=== PATIENT | female | born 1940 | race Hispanic/Latino ===

== ENCOUNTER 2022-10-15 12:38 | Inpatient (IN) | payer MEDICARE ==
[2022-10-15] VITALS (32 sets, daily range): BP systolic 95–179; BP diastolic 40–95
[~2022-10-15] VITALS: Ht 154.9 cm; Wt 122.9 kg
[2022-10-15] MEDS ORDERED: HEPARIN 10,000 UNIT/10ML (1,000 UNIT/ML) VIAL ONE (14:36)
[2022-10-15] MEDS ORDERED: VERAPAMIL HCL 2.5 MG/ML VIAL ONE (14:36)
[2022-10-15] MEDS ORDERED: FENTANYL CITRATE PF 50 MCG/1 ML 2ML VIAL ONE (14:37)
[2022-10-15] MEDS ORDERED: LIDOCAINE HCL 400MG/20ML VIAL ONE (14:37)
[2022-10-15] MEDS ORDERED: IOHEXOL-350 50ML VIAL IV ONE ×3 (14:37→16:20)
[2022-10-15] MEDS ORDERED: MIDAZOLAM HCL 1 MG/ML 2ML VIAL ONE (14:37)
[2022-10-15] MEDS ORDERED: IODIXANOL 320 MG/ML 100 ML VIAL ONE (14:37)
[2022-10-15] MEDS ORDERED: NITROGLYCERIN 50MG VIAL ONE (14:38)
[2022-10-15 14:50] LABS: BASOPHILS % (AUTO) 0.9 % (0.0-5.0); LYMPHOCYTES % (AUTO) 18.9 % (21.0-51.0); MEAN CORPUSCULAR HEMOGLOBIN 29.8 pg (27.0-33.0); MEAN CORPUSCULAR HGB CONC 32.8 g/dL (32.0-36.0); MEAN CORPUSCULAR VOLUME 90.7 fL (79-99); MONOCYTES % (AUTO) 7.2 % (3.0-13.0); NEUTROPHILS % (AUTO) 71.6 % (40.0-77.0); PLATELET COUNT (AUTO) 272 K/uL (130-400); RED CELL DISTRIBUTION WIDTH 13.2 % (11.0-15.5); WHITE BLOOD COUNT (AUTO) 11.5 K/uL (4.8-10.8)
[2022-10-15] MEDS ORDERED: PHENYLEPHRINE HCL 10 MG/ML 1ML VIAL IV ONE (14:50)
[2022-10-15] MEDS ORDERED: LIDOCAINE PF 100MG/5ML (2%) SYRINGE 5ML IVP ONE (14:50)
[2022-10-15] MEDS ORDERED: SODIUM BICARB 8.4% 50ML SYRINGE IVP ONE (14:50)
[2022-10-15] MEDS ORDERED: NOREPINEPHRINE BITARTRATE 1 MG/1 ML ML IV ONE (14:50)
[2022-10-15] MEDS ORDERED: ALBUMIN (HUMAN) 25% 50 ML IV ONE (14:50)
[2022-10-15] MEDS ORDERED: CACL 1GM SYG IVP ONE (14:50)
[2022-10-15] MEDS ORDERED: AMINOCAPROIC ACID 5,000MG VIAL IV ONE (14:50)
[2022-10-15] MEDS ORDERED: HEPARIN 10,000 UNIT/10ML (1,000 UNIT/ML) VIAL IV ONE (14:50)
[2022-10-15] MEDS ORDERED: MAGNESIUM SULFATE 1 GM/2 ML VIAL IM ONE (14:50)
[2022-10-15 14:59] LABS: POTASSIUM 3.9 mmol/L (3.5-5.1)
[2022-10-15 15:00] LABS: INR 0.98 (0.85-1.15); PROTHROMBIN TIME 10.7 SEC (9.6-11.6)
[2022-10-15] MEDS ORDERED: ESMOLOL HCL 2,500 MG in 0.9% NACL 250ML 250 ML IV SCH (15:00)
[2022-10-15 15:01] LABS: PARTIAL THROMBOPLASTIN TIME 25.5 SEC (26.3-35.5)
[2022-10-15 15:05] LABS: ALBUMIN 3.3 g/dL (3.5-5.0); TOTAL PROTEIN, SERUM 7.5 g/dL (6.0-8.3)
[2022-10-15] MEDS ORDERED: 0.9%NACL 1000ML 1,000 ML IV SCH (17:00)
[2022-10-15 18:30] LABS: HEMOGLOBIN A1C 7.8 % (4.0-6.0)
[2022-10-15] MEDS ORDERED: ONDANSETRON 4MG INJ IVP PRN (18:30)
[2022-10-15] MEDS ORDERED: IPRATROPIUM/ALBUTEROL SULFATE 3 ML SOLUTION IH PRN (18:30)
[2022-10-15] MEDS ORDERED: ACETAMINOPHEN 500 MG TABLET PO PRN (18:30)
[2022-10-15 18:45] LABS: CHOLESTEROL 208 mg/dL (<200); CRP QUANTITATIVE < 2.00 mg/L (0.00-9.0); HDL CHOLESTEROL 54 mg/dL (35-85); LDL DIRECT 124 mg/dL (0-99); TRIGLYCERIDES 191 mg/dL (30-200)
[2022-10-15] MEDS ORDERED: NICARDIPINE 25 MG in 0.9% NACL 250ML IV PRN (19:00)
[2022-10-15] MEDS: ATORVASTATIN 40 MG TABLET PO SCH (20:27)
[2022-10-15] MEDS: INSULIN HUMULIN R 100 UNIT/ML 3ML SQ SCH (20:27)
[2022-10-15 20:37] LABS: APPEARANCE,URINE CLEAR (CLEAR); BILIRUBIN,URINE NEGATIVE (NEGATIVE); COLOR,URINE LIGHT-YELLOW (YELLOW); GLUCOSE, URINE (UA) NEGATIVE (NEGATIVE); KETONES,URINE NEGATIVE (NEGATIVE); LEUKOCYTE ESTERASE ,URINE NEGATIVE Leu/uL (NEGATIVE); NITRATE,URINE NEGATIVE (NEGATIVE); OCCULT BLOOD,URINE LARGE (NEGATIVE); PROTEIN,URINE 30 mg/dL (NEGATIVE); UROBILINOGEN,URINE 0.2 mg/dL (0.2-1.0)
[2022-10-15 20:38] LABS: MUCUS,URINE MOD LPF (None Seen); SQUAMOUS EPITHELIAL CELL,UR FEW /HPF (0-2); WBC,URINE 0-1 /HPF (0-1)
[2022-10-16] VITALS (79 sets, daily range): BP systolic 78–140; BP diastolic 31–90
[2022-10-16 04:13] LABS: BASOPHILS % (AUTO) 0.7 % (0.0-5.0); EOSINOPHILS % (AUTO) 1.9 % (0.0-8.0); HEMATOCRIT 34.5 % (36-48); MEAN CORPUSCULAR HEMOGLOBIN 29.5 pg (27.0-33.0); MEAN CORPUSCULAR VOLUME 89.1 fL (79-99); MONOCYTES % (AUTO) 9.5 % (3.0-13.0); NEUTROPHILS % (AUTO) 66.6 % (40.0-77.0); PLATELET COUNT (AUTO) 227 K/uL (130-400); RED BLOOD CELL COUNT(AUTO) 3.87 MIL/uL (4.00-5.50); RED CELL DISTRIBUTION WIDTH 13.2 % (11.0-15.5); WHITE BLOOD COUNT (AUTO) 11.5 K/uL (4.8-10.8)
[2022-10-16 04:34] LABS: ALBUMIN 2.9 g/dL (3.5-5.0); CREATININE 0.9 mg/dL (0.5-1.5); MAGNESIUM 1.7 mg/dL (1.80-2.40); POTASSIUM 3.4 mmol/L (3.5-5.1); TOTAL PROTEIN, SERUM 6.4 g/dL (6.0-8.3)
[2022-10-16] MEDS: LEVOFLOXACIN 500 MG/D5W 100 ML 100 ML IV SCH (04:58)
[2022-10-16] MEDS ORDERED: POTASSIUM CHLORIDE 10% ELIXIR 20 MEQ/15 ML UDCUP PO PRN (06:30)
[2022-10-16] MEDS ORDERED: POTASSIUM CHLORIDE 20MEQ/100ML 100 ML IV PRN (06:30)
[2022-10-16] MEDS: INSULIN HUMULIN R 100 UNIT/ML 3ML SQ SCH ×4 (07:30→20:29)
[2022-10-16] MEDS: PANTOPRAZOLE 40 MG TAB DR PO SCH (09:03)
[2022-10-16] MEDS: ASPIRIN 81 MG EC TAB PO SCH (09:03)
[2022-10-16] MEDS: Vitamin B Complex/Vit C/Folic Acid PO SCH (09:03)
[2022-10-16] MEDS ORDERED: NITROGLYCERIN 0.4 MG SL TAB SL PRN (11:00)
[2022-10-16] MEDS ORDERED: NITROGLYCERIN 50MG/D5W 250ML 1 BOT ONE (11:21)
[2022-10-16] MEDS ORDERED: NITROGLYCERIN 50MG/D5W 250ML 250 BOT IV SCH (11:30)
[2022-10-16] MEDS: MORPHINE 2 MG SYG IVP PRN (11:55)
[2022-10-16] MEDS: HEPARIN 25,000 UNITS/250ML D5W 250 ML IV SCH (14:29)
[2022-10-16] MEDS: KCL 20 MEQ ERTAB PO PRN ×2 (16:46→18:52)
[2022-10-16] MEDS: ATORVASTATIN 40 MG TABLET PO SCH (21:01)
[2022-10-17] VITALS (81 sets, daily range): BP systolic 83–152; BP diastolic 39–87
[2022-10-17] MEDS ORDERED: ATOR40TA71 PO (00:45)
[2022-10-17] MEDS ORDERED: OMEP40CA21 PO (00:45)
[2022-10-17] MEDS ORDERED: MELO-108 PO (00:45)
[2022-10-17] MEDS ORDERED: LOSA1TAB37 PO (00:45)
[2022-10-17] MEDS: MORPHINE 2 MG SYG IVP PRN (02:20)
[2022-10-17 02:37] LABS: CREATININE 0.9 mg/dL (0.5-1.5); MAGNESIUM 1.6 mg/dL (1.80-2.40); POTASSIUM 3.9 mmol/L (3.5-5.1)
[2022-10-17] MEDS: MAGNESIUM 2GM PREMIX 50ML 50 ML IV SCH (05:43)
[2022-10-17] MEDS: LEVOFLOXACIN 500 MG/D5W 100 ML 100 ML IV SCH (05:43)
[2022-10-17] MEDS: HEPARIN 25,000 UNITS/250ML D5W 250 ML IV SCH (05:49)
[2022-10-17] MEDS: INSULIN HUMULIN R 100 UNIT/ML 3ML SQ SCH ×4 (07:30→21:00)
[2022-10-17] MEDS: Vitamin B Complex/Vit C/Folic Acid PO SCH (08:22)
[2022-10-17] MEDS: PANTOPRAZOLE 40 MG TAB DR PO SCH (08:22)
[2022-10-17] MEDS: ASPIRIN 81 MG EC TAB PO SCH (08:22)
[2022-10-17] MEDS ORDERED: ENALAPRILAT DIHYDRATE 1.25MG/ML 1ML VIAL IV PRN (10:00)
[2022-10-17] MEDS: FUROSEMIDE 20 MG TABLET PO SCH ×2 (10:52→16:26)
[2022-10-17] MEDS: METOPROLOL TARTRATE 25 MG TAB PO SCH ×2 (10:52→21:22)
[2022-10-17 17:28] LABS: ABG BASE EXCESS 1.6 mmol/L (-2.0-3.0); ABG HCO3 25.5 mmol/L (21.0-28.0); ABG OXYGEN SATURATION 93.2 % (95.0-99.0); ABG PCO2 38 mmHg (32-45)
[2022-10-17] MEDS: ATORVASTATIN 40 MG TABLET PO SCH (21:09)
[2022-10-18] VITALS (43 sets, daily range): BP systolic 98–155; BP diastolic 35–97
[2022-10-18 02:11] LABS: HEMATOCRIT 31.2 % (36-48); MEAN CORPUSCULAR HEMOGLOBIN 29.4 pg (27.0-33.0); MEAN CORPUSCULAR HGB CONC 32.7 g/dL (32.0-36.0); MEAN CORPUSCULAR VOLUME 89.9 fL (79-99); PLATELET COUNT (AUTO) 216 K/uL (130-400); RED BLOOD CELL COUNT(AUTO) 3.47 MIL/uL (4.00-5.50); RED CELL DISTRIBUTION WIDTH 12.8 % (11.0-15.5)
[2022-10-18 02:20] LABS: POTASSIUM 3.5 mmol/L (3.5-5.1)
[2022-10-18 02:24] LABS: ALBUMIN 2.6 g/dL (3.5-5.0); MAGNESIUM 1.7 mg/dL (1.80-2.40); TOTAL PROTEIN, SERUM 6.5 g/dL (6.0-8.3)
[2022-10-18 02:39] LABS: INR 0.99 (0.85-1.15); PROTHROMBIN TIME 10.8 SEC (9.6-11.6)
[2022-10-18 02:40] LABS: PARTIAL THROMBOPLASTIN TIME 52.3 SEC (26.3-35.5)
[2022-10-18 02:43] LABS: HEMOGLOBIN A1C 7.3 % (4.0-6.0)
[2022-10-18 02:50] LABS: B-TYPE NATRIURETIC PEPTIDE 250 pg/mL (0-100)
[2022-10-18 03:03] LABS: BASOPHILS % (AUTO) 0.3 % (0.0-5.0); EOSINOPHILS % (AUTO) 0.7 % (0.0-8.0); LYMPHOCYTES % (AUTO) 31.1 % (21.0-51.0); MONOCYTES % (AUTO) 5.2 % (3.0-13.0); NEUTROPHILS % (AUTO) 62.5 % (40.0-77.0)
[2022-10-18] MEDS: LEVOFLOXACIN 500 MG/D5W 100 ML 100 ML IV SCH (05:29)
[2022-10-18] MEDS ORDERED: PAPAVERINE HCL 30 MG/ML 2ML VIAL ONE (06:06)
[2022-10-18] MEDS ORDERED: CEFAZOLIN SODIUM 1 GM VIAL ONE (06:06)
[2022-10-18] MEDS ORDERED: NOREPINEPHRINE BITARTRATE 8 MG in 0.9% NACL 250ML 250 ML IV PRN (07:00)
[2022-10-18] MEDS ORDERED: EPINEPHRINE PF 1MG (1:1,000) 10 MG in 0.9% NACL 250ML 240 ML IV PRN ×2 (07:00→10:30)
[2022-10-18] MEDS ORDERED: AMINOCAPROIC ACID 5,000MG VIAL 15,000 MG in 0.9% NACL 500ML IV.SOLN 420 ML IV PRN (07:00)
[2022-10-18] MEDS ORDERED: HEPARIN 10,000 UNIT/10ML (1,000 UNIT/ML) VIAL ONE (08:13)
[2022-10-18] MEDS ORDERED: PROTAMINE SULFATE 10 MG/ML 25ML VIAL IV ONE (08:13)
[2022-10-18] MEDS ORDERED: ESMOLOL HCL 10 MG/ML 10 ML VIAL ONE (08:13)
[2022-10-18] MEDS ORDERED: LIDOCAINE PF 100MG/5ML (2%) SYRINGE 5ML ONE (08:13)
[2022-10-18] MEDS ORDERED: NOREPINEPHRINE BITARTRATE 1 MG/1 ML ML IV ONE ×3 (08:13→16:35)
[2022-10-18] MEDS ORDERED: EPINEPHRINE PF 1MG (1:1,000) 1 MG/ML AMP ONE (08:13)
[2022-10-18] MEDS ORDERED: AMINOCAPROIC ACID 5,000MG VIAL ONE (08:13)
[2022-10-18] MEDS ORDERED: SODIUM BICARB 50MEQ 50ML VIAL 150 ML ONE (08:13)
[2022-10-18] MEDS ORDERED: ROCURONIUM 10MG/1ML SYR 10 MG/ML ML ONE ×3 (08:14→15:11)
[2022-10-18] MEDS ORDERED: FENTANYL CITRATE PF 50 MCG/1 ML 20ML VIAL IJ ONE ×2 (08:14→13:46)
[2022-10-18] MEDS ORDERED: PROPOFOL 10 MG/ML 20ML VIAL IV ONE (08:14)
[2022-10-18] MEDS ORDERED: MIDAZOLAM HCL 1 MG/ML 2ML VIAL ONE (08:14)
[2022-10-18] MEDS: CLINDAMYCIN IVPB 900MG/50ML IV PRN ×2 (08:30→16:29)
[2022-10-18 08:50] LABS: ABG HCO3 23.5 mmol/L (21.0-28.0); ABG OXYGEN SATURATION 99.6 % (95.0-99.0); ABG PCO2 34 mmHg (32-45)
[2022-10-18] MEDS: ASPIRIN 81 MG EC TAB PO SCH (09:00)
[2022-10-18] MEDS: Vitamin B Complex/Vit C/Folic Acid PO SCH (09:00)
[2022-10-18] MEDS ORDERED: MAGNESIUM SULFATE 1 GM/2 ML VIAL ONE (10:06)
[2022-10-18] MEDS ORDERED: GLUCAGON 1MG KIT 1 MG ML IM PRN (10:30)
[2022-10-18] MEDS ORDERED: MAGNESIUM 2GM PREMIX 50ML 50 ML IV PRN (10:30)
[2022-10-18] MEDS ORDERED: ONDANSETRON 4MG INJ IV PRN (10:30)
[2022-10-18] MEDS ORDERED: ACETAMINOPHEN 650 MG SUPPOSITORY RC PRN (10:30)
[2022-10-18] MEDS ORDERED: NOREPINEPHRIN 4MG/NS 250ML 250 ML IV PRN (10:30)
[2022-10-18] MEDS ORDERED: MORPHINE 2 MG SYG IV PRN (10:30)
[2022-10-18] MEDS ORDERED: PROPOFOL 1000 MG/100 ML 100 ML IV PRN (10:30)
[2022-10-18] MEDS ORDERED: 0.9%NACL 10ML VIAL IVP PRN (10:30)
[2022-10-18] MEDS ORDERED: 0.9%NACL 1000ML 1,000 ML IV SCH (10:30)
[2022-10-18] MEDS ORDERED: MORPHINE 4 MG SYG IV PRN (10:30)
[2022-10-18] MEDS ORDERED: TRAMADOL HCL 50 MG TABLET PO PRN ×2 (10:30)
[2022-10-18] MEDS ORDERED: ALBUMIN (HUMAN) 5% 250 ML IV PRN (10:30)
[2022-10-18] MEDS ORDERED: AMINOCAPROIC ACID 5,000MG VIAL 15,000 MG in 0.9% NACL 250ML 250 ML IV SCH (10:30)
[2022-10-18] MEDS ORDERED: ACETAMINOPHEN 325 MG TAB PO PRN ×2 (10:30)
[2022-10-18] MEDS ORDERED: 0.9% NACL 500ML IV.SOLN 500 ML IV SCH (10:30)
[2022-10-18] MEDS ORDERED: POTASSIUM PHOS 15 mMOL+NS250ML 250 ML IV PRN (10:30)
[2022-10-18] MEDS ORDERED: NITROGLYCERIN 50MG/D5W 250ML 250 BOT IV SCH (10:30)
[2022-10-18] MEDS ORDERED: AMIODARONE 150MG VIAL ONE ×2 (10:42→12:02)
[2022-10-18] MEDS ORDERED: PROTAMINE SULFATE 10 MG/ML 5 ML VIAL ONE (10:44)
[2022-10-18] MEDS ORDERED: SODIUM BICARB 50MEQ 50ML VIAL 200 ML ONE (10:53)
[2022-10-18 10:54] LABS: ABG HCO3 19.3 mmol/L (21.0-28.0); ABG PCO2 33 mmHg (32-45)
[2022-10-18] MEDS ORDERED: SODIUM BICARB 50MEQ 50ML VIAL 50 ML ONE ×2 (10:55→11:26)
[2022-10-18] MEDS ORDERED: INSULIN HUMULIN R 100 UNIT/ML 3ML ONE (10:56)
[2022-10-18] MEDS ORDERED: EPHEDRINE SULFATE 50 MG/ML AMPULE ONE (11:11)
[2022-10-18] MEDS ORDERED: SODIUM BICARB 50MEQ 50ML VIAL 100 ML ONE ×2 (11:13→11:27)
[2022-10-18] MEDS ORDERED: KETAMINE HCL 100 MG/ML 5ML VIAL IJ ONE (11:16)
[2022-10-18 11:23] LABS: ABG HCO3 23.9 mmol/L (21.0-28.0); ABG OXYGEN SATURATION 98.8 % (95.0-99.0); ABG PCO2 36 mmHg (32-45)
[2022-10-18] MEDS ORDERED: GLYCOPYRROLATE 1 MG/5 ML SYRINGE ONE (11:28)
[2022-10-18] MEDS ORDERED: ASPIRIN 81MG CHEW TAB NG ONE (12:00)
[2022-10-18] MEDS ORDERED: MIDAZOLAM HCL 1 MG/ML 5ML VIAL ONE (12:35)
[2022-10-18 12:46] LABS: ABG BASE EXCESS -14.3 mmol/L (-2.0-3.0); ABG HCO3 12.3 mmol/L (21.0-28.0); ABG OXYGEN SATURATION 99.3 % (95.0-99.0); ABG PCO2 32 mmHg (32-45)
[2022-10-18 13:09] LABS: ABG BASE EXCESS -12.3 mmol/L (-2.0-3.0); ABG HCO3 14.1 mmol/L (21.0-28.0); ABG PCO2 34 mmHg (32-45)
[2022-10-18] MEDS ORDERED: LIDOCAINE 2G/250ML 250 ML IV ONE (13:09)
[2022-10-18] MEDS ORDERED: VASOPRESSIN 20 UNITS/ML 1ML VIAL ONE (13:14)
[2022-10-18 13:33] LABS: ABG BASE EXCESS -2.5 mmol/L (-2.0-3.0); ABG HCO3 21.6 mmol/L (21.0-28.0); ABG OXYGEN SATURATION 99.2 % (95.0-99.0); ABG PCO2 34 mmHg (32-45)
[2022-10-18] MEDS ORDERED: PHENYLEPHRINE HCL 10 MG/ML 1ML VIAL IV ONE (13:48)
[2022-10-18] MEDS ORDERED: AMIODARONE 360MG/200ML D5W(1MG/MIN) IV SCH ×2 (14:00)
[2022-10-18 14:02] LABS: ABG BASE EXCESS 2.5 mmol/L (-2.0-3.0); ABG HCO3 25.6 mmol/L (21.0-28.0); ABG OXYGEN SATURATION 98.8 % (95.0-99.0); ABG PCO2 33 mmHg (32-45)
[2022-10-18] MEDS ORDERED: PHENYLEPHRINE 100 MG/NS 250ML IV SCH ×2 (14:30)
[2022-10-18 15:23] LABS: ABG BASE EXCESS 4.8 mmol/L (-2.0-3.0); ABG HCO3 28.5 mmol/L (21.0-28.0); ABG OXYGEN SATURATION 98.9 % (95.0-99.0); ABG PCO2 38 mmHg (32-45)
[2022-10-18 15:56] LABS: ABG HCO3 21.4 mmol/L (21.0-28.0); ABG OXYGEN SATURATION 99.1 % (95.0-99.0); ABG PCO2 40 mmHg (32-45)
[2022-10-18] MEDS ORDERED: ATROPINE 1MG SYG IVP ONE (16:04)
[2022-10-18] MEDS ORDERED: CLINDAMYCIN IVPB 900MG/50ML 50 ML IV ONE (16:08)
[2022-10-18] MEDS ORDERED: FUROSEMIDE 40MG VIAL ONE (16:12)
[2022-10-18 17:03] LABS: ABG BASE EXCESS -8.6 mmol/L (-2.0-3.0); ABG HCO3 18.4 mmol/L (21.0-28.0); ABG PCO2 45 mmHg (32-45)
[2022-10-18] MEDS: SODIUM BICARB 50MEQ 50ML VIAL IV PRN ×7 (17:21→22:26)
[2022-10-18] MEDS: POTASSIUM CHLORIDE 20MEQ/100ML 100 ML IV PRN ×4 (17:23→22:26)
[2022-10-18] MEDS: MAGNESIUM 2GM PREMIX 50ML 50 ML IV SCH (17:24)
[2022-10-18] MEDS: INSULIN REGULAR, HUMAN 3ML 100 UNIT in 0.9%NACL 100ML 99 ML IV SCH ×2 (17:26)
[2022-10-18] MEDS: CLINDAMYCIN IVPB 900MG/50ML 50 ML IV SCH (17:27)
[2022-10-18 17:59] LABS: HEMATOCRIT 27.9 % (36-48); MEAN CORPUSCULAR HEMOGLOBIN 30.5 pg (27.0-33.0); MEAN CORPUSCULAR HGB CONC 34.1 g/dL (32.0-36.0); MEAN CORPUSCULAR VOLUME 89.7 fL (79-99); RED BLOOD CELL COUNT(AUTO) 3.11 MIL/uL (4.00-5.50); RED CELL DISTRIBUTION WIDTH 14.1 % (11.0-15.5); WHITE BLOOD COUNT (AUTO) 13.5 K/uL (4.8-10.8)
[2022-10-18] MEDS ORDERED: NOREPINEPHRINE 8MG/NS 250ML PREMIX IV SCH (18:00)
[2022-10-18 18:10] LABS: INR 1.66 (0.85-1.15); PROTHROMBIN TIME 17.6 SEC (9.6-11.6)
[2022-10-18 18:12] LABS: CREATININE 1.9 mg/dL (0.5-1.5); MAGNESIUM 3.1 mg/dL (1.80-2.40); PHOSPHORUS 5.7 mg/dL (2.5-4.9); POTASSIUM 3.2 mmol/L (3.5-5.1)
[2022-10-18 18:23] LABS: ABG BASE EXCESS -2.4 mmol/L (-2.0-3.0); ABG HCO3 22.7 mmol/L (21.0-28.0); ABG OXYGEN SATURATION 97.2 % (95.0-99.0); ABG PCO2 40 mmHg (32-45)
[2022-10-18] MEDS ORDERED: NOREPINEPHRIN 8MG/250ML NS PMX 250 ML IV SCH (18:30)
[2022-10-18 19:58] LABS: ABG BASE EXCESS 0.8 mmol/L (-2.0-3.0); ABG HCO3 25.2 mmol/L (21.0-28.0); ABG PCO2 40 mmHg (32-45)
[2022-10-18] MEDS ORDERED: LIDOCAINE 2G/250ML 250 ML IV SCH (20:00)
[2022-10-18] MEDS: NITROGLYCERIN 1GM OINT 1 INCH/1GM TD SCH (20:04)
[2022-10-18] MEDS: FAMOTIDINE 20MG VIAL IV SCH (20:26)
[2022-10-18] MEDS: ATORVASTATIN 40 MG TABLET PO SCH (20:26)
[2022-10-18] MEDS: AMIODARONE 900MG VIAL 540 MG in DEXTROSE 5%-WATER 300 ML IV SCH (20:49)
[2022-10-18 21:06] LABS: ABG BASE EXCESS -1.9 mmol/L (-2.0-3.0); ABG HCO3 23.4 mmol/L (21.0-28.0); ABG OXYGEN SATURATION 98.1 % (95.0-99.0); ABG PCO2 42 mmHg (32-45)
[2022-10-18 22:22] LABS: ABG BASE EXCESS -3.3 mmol/L (-2.0-3.0); ABG OXYGEN SATURATION 97.4 % (95.0-99.0); ABG PCO2 41 mmHg (32-45)
[2022-10-18] MEDS: CALCIUM GLUC 1GM 1 GM in 0.9%NACL 50ML 50 ML IV PRN ×2 (22:33→23:21)
[2022-10-18 23:19] LABS: ABG BASE EXCESS 3.1 mmol/L (-2.0-3.0); ABG OXYGEN SATURATION 95.2 % (95.0-99.0); ABG PCO2 44 mmHg (32-45)
[2022-10-19] VITALS (87 sets, daily range): BP systolic 71–174; BP diastolic 35–85
[2022-10-19] MEDS ORDERED: FUROSEMIDE 40MG VIAL ONE (00:29)
[2022-10-19] MEDS ORDERED: ENOXAPARIN SODIUM 60 MG/0.6 ML SQ ONE ×2 (00:30)
[2022-10-19] MEDS ORDERED: FUROSEMIDE 40MG VIAL IV ONE (00:30)
[2022-10-19 00:32] LABS: ABG BASE EXCESS -1.3 mmol/L (-2.0-3.0); ABG HCO3 23.5 mmol/L (21.0-28.0); ABG OXYGEN SATURATION 96.8 % (95.0-99.0); ABG PCO2 40 mmHg (32-45)
[2022-10-19] MEDS: SODIUM BICARB 50MEQ 50ML VIAL IV PRN ×2 (00:37→19:14)
[2022-10-19] MEDS: POTASSIUM CHLORIDE 20MEQ/100ML 100 ML IV PRN (00:38)
[2022-10-19] MEDS: CALCIUM GLUC 1GM 1 GM in 0.9%NACL 50ML 50 ML IV PRN ×3 (00:38→04:55)
[2022-10-19] MEDS: PHARMACY COMMUNICATION MISC SCH ×2 (01:00→13:00)
[2022-10-19 01:30] LABS: ABG BASE EXCESS -0.4 mmol/L (-2.0-3.0); ABG HCO3 24.3 mmol/L (21.0-28.0); ABG OXYGEN SATURATION 96.4 % (95.0-99.0); ABG PCO2 40 mmHg (32-45)
[2022-10-19] MEDS ORDERED: 0.9% NACL 250ML 250 ML ONE (02:13)
[2022-10-19] MEDS ORDERED: EPINEPHRINE 1 MG/ML 30ML VIAL IJ ONE (02:16)
[2022-10-19] MEDS: NITROGLYCERIN 1GM OINT 1 INCH/1GM TD SCH ×4 (02:19→22:47)
[2022-10-19] MEDS ORDERED: EPINEPHRINE PF 1MG (1:1,000) 10 MG in 0.9% NACL 250ML 240 ML IV PRN (02:30)
[2022-10-19 02:37] LABS: BASOPHILS % (AUTO) 0.2 % (0.0-5.0); EOSINOPHILS % (AUTO) 7.6 % (0.0-8.0); HEMATOCRIT 31.7 % (36-48); LYMPHOCYTES % (AUTO) 6.2 % (21.0-51.0); MEAN CORPUSCULAR HEMOGLOBIN 30.5 pg (27.0-33.0); MEAN CORPUSCULAR HGB CONC 34.1 g/dL (32.0-36.0); MEAN CORPUSCULAR VOLUME 89.5 fL (79-99); MONOCYTES % (AUTO) 5.3 % (3.0-13.0); NEUTROPHILS % (AUTO) 78.6 % (40.0-77.0); NUCLEATED RED BLOOD CELLS 0.1 % (0.0-0.19); PLATELET COUNT (AUTO) 123 K/uL (130-400); RED BLOOD CELL COUNT(AUTO) 3.54 MIL/uL (4.00-5.50); RED CELL DISTRIBUTION WIDTH 14.5 % (11.0-15.5); WHITE BLOOD COUNT (AUTO) 16.4 K/uL (4.8-10.8)
[2022-10-19 02:41] LABS: ABG OXYGEN SATURATION 96.1 % (95.0-99.0); ABG PCO2 41 mmHg (32-45)
[2022-10-19] MEDS: CLINDAMYCIN IVPB 900MG/50ML 50 ML IV SCH ×2 (02:51→11:00)
[2022-10-19 03:10] LABS: ALBUMIN 2.2 g/dL (3.5-5.0); CREATININE 2.8 mg/dL (0.5-1.5); MAGNESIUM 2.7 mg/dL (1.80-2.40); PHOSPHORUS 5.9 mg/dL (2.5-4.9); POTASSIUM 4.5 mmol/L (3.5-5.1); TOTAL PROTEIN, SERUM 4.5 g/dL (6.0-8.3)
[2022-10-19 03:14] LABS: INR 1.57 (0.85-1.15); PROTHROMBIN TIME 16.7 SEC (9.6-11.6)
[2022-10-19 03:15] LABS: PARTIAL THROMBOPLASTIN TIME 72.3 SEC (26.3-35.5)
[2022-10-19 03:35] LABS: ABG BASE EXCESS 1.7 mmol/L (-2.0-3.0); ABG HCO3 25.6 mmol/L (21.0-28.0); ABG OXYGEN SATURATION 96.4 % (95.0-99.0); ABG PCO2 38 mmHg (32-45)
[2022-10-19] MEDS ORDERED: PHARMACY COMMUNICATION MISC SCH ×4 (04:30→11:30)
[2022-10-19 04:51] LABS: ABG BASE EXCESS 2.3 mmol/L (-2.0-3.0); ABG HCO3 26.5 mmol/L (21.0-28.0); ABG OXYGEN SATURATION 96.2 % (95.0-99.0); ABG PCO2 40 mmHg (32-45)
[2022-10-19 06:22] LABS: ABG BASE EXCESS 1.6 mmol/L (-2.0-3.0); ABG HCO3 25.4 mmol/L (21.0-28.0); ABG OXYGEN SATURATION 95.9 % (95.0-99.0); ABG PCO2 37 mmHg (32-45)
[2022-10-19] MEDS ORDERED: PHYTONADIONE 10 MG in 0.9%NACL 50ML 50 ML IVPB SCH (06:33)
[2022-10-19] MEDS: WATER IVPB SCH ×2 (06:49→22:48)
[2022-10-19] MEDS: DEXTROSE 5% IVPB SCH ×2 (06:49→22:48)
[2022-10-19] MEDS: PHYTONADIONE IVPB SCH ×2 (06:49→22:48)
[2022-10-19] MEDS: DEXTROSE 5% IV PRN (07:20)
[2022-10-19] MEDS: EPINEPHRINE IV PRN (07:20)
[2022-10-19] MEDS: WATER IV PRN (07:20)
[2022-10-19] MEDS: WATER IV SCH (07:23)
[2022-10-19] MEDS: PHENYLEPHRINE HCL IV SCH (07:23)
[2022-10-19] MEDS: DEXTROSE 5% IV SCH (07:23)
[2022-10-19] MEDS ORDERED: NOREPINEPHRINE BITARTRATE 8 MG in DEXTROSE 5%-WATER 250 ML IV SCH (07:30)
[2022-10-19 07:56] LABS: ABG BASE EXCESS 0.8 mmol/L (-2.0-3.0); ABG HCO3 25.1 mmol/L (21.0-28.0); ABG OXYGEN SATURATION 96.1 % (95.0-99.0); ABG PCO2 39 mmHg (32-45)
[2022-10-19] MEDS: CALCIUM GLUC 1 GM /D5W 50ML IV PRN ×6 (08:00→14:21)
[2022-10-19] MEDS ORDERED: ACETAMINOPHEN 325 MG/10.15ML UDCUP ONE (08:34)
[2022-10-19 08:37] LABS: APPEARANCE,URINE CLEAR (CLEAR); BILIRUBIN,URINE NEGATIVE (NEGATIVE); COLOR,URINE YELLOW (YELLOW); GLUCOSE, URINE (UA) NEGATIVE (NEGATIVE); KETONES,URINE 5 mg/dL (NEGATIVE); LEUKOCYTE ESTERASE ,URINE NEGATIVE Leu/uL (NEGATIVE); NITRATE,URINE NEGATIVE (NEGATIVE); OCCULT BLOOD,URINE LARGE (NEGATIVE); PROTEIN,URINE 100 mg/dL (NEGATIVE); UROBILINOGEN,URINE 0.2 mg/dL (0.2-1.0)
[2022-10-19 08:39] LABS: CHLORIDE,URINE RANDOM 112 mmol/L (110-250); CREATININE,URINE RANDOM 12 mg/dL (30-135); POTASSIUM,URINE RANDOM 37 mmol/L (25-125); SODIUM,URINE RANDOM 111 mmol/l (40-220)
[2022-10-19 08:42] LABS: BACTERIA,URINE Rare /HPF (None Seen); RBC,URINE 0-1 /HPF (0-1); SQUAMOUS EPITHELIAL CELL,UR 0-2 /HPF (0-2); WBC,URINE 0-1 /HPF (0-1)
[2022-10-19] MEDS ORDERED: ENOXAPARIN SODIUM 60 MG/0.6 ML SQ SCH (09:00)
[2022-10-19] MEDS: NOREPINEPHRINE BITARTRATE 32 MG in DEXTROSE 5%-WATER 250 ML IV SCH (09:02)
[2022-10-19 09:28] LABS: ABG BASE EXCESS 1.4 mmol/L (-2.0-3.0); ABG HCO3 25.6 mmol/L (21.0-28.0); ABG PCO2 39 mmHg (32-45)
[2022-10-19 09:44] LABS: INR 1.57 (0.85-1.15); PROTHROMBIN TIME 16.7 SEC (9.6-11.6)
[2022-10-19 09:45] LABS: PARTIAL THROMBOPLASTIN TIME 46.3 SEC (26.3-35.5)
[2022-10-19] MEDS ORDERED: MEROPENEM 1 GM VIAL IVP SCH ×2 (11:00)
[2022-10-19] MEDS: ASPIRIN 81 MG EC TAB PO SCH (11:01)
[2022-10-19] MEDS: Vitamin B Complex/Vit C/Folic Acid PO SCH (11:01)
[2022-10-19] MEDS: FAMOTIDINE 20MG VIAL IV SCH ×2 (11:02→20:49)
[2022-10-19] MEDS: FUROSEMIDE 40MG VIAL IV SCH ×2 (11:02→20:49)
[2022-10-19 11:19] LABS: ABG BASE EXCESS -0.3 mmol/L (-2.0-3.0); ABG HCO3 24.9 mmol/L (21.0-28.0); ABG OXYGEN SATURATION 92.1 % (95.0-99.0); ABG PCO2 43 mmHg (32-45)
[2022-10-19 11:35] LABS: CREATININE 3.3 mg/dL (0.5-1.5); POTASSIUM 4.7 mmol/L (3.5-5.1)
[2022-10-19 13:30] LABS: ABG BASE EXCESS 0.7 mmol/L (-2.0-3.0); ABG HCO3 25.2 mmol/L (21.0-28.0); ABG OXYGEN SATURATION 91.6 % (95.0-99.0); ABG PCO2 40 mmHg (32-45)
[2022-10-19] MEDS: AMIODARONE 900MG VIAL 540 MG in DEXTROSE 5%-WATER 300 ML IV SCH (14:17)
[2022-10-19 14:32] LABS: ABG BASE EXCESS 2.3 mmol/L (-2.0-3.0); ABG HCO3 26.6 mmol/L (21.0-28.0); ABG OXYGEN SATURATION 94.2 % (95.0-99.0); ABG PCO2 40 mmHg (32-45)
[2022-10-19 15:33] LABS: ABG BASE EXCESS 2.2 mmol/L (-2.0-3.0); ABG HCO3 26.6 mmol/L (21.0-28.0); ABG OXYGEN SATURATION 93.7 % (95.0-99.0); ABG PCO2 41 mmHg (32-45)
[2022-10-19] MEDS: FUROSEMIDE 100MG VIAL 100 MG in 0.9%NACL 100ML 100 ML IV SCH (16:59)
[2022-10-19] MEDS: VASOPRESSIN 40 UNITS in 0.9%NACL 50ML 40 ML IV SCH (16:59)
[2022-10-19] MEDS ORDERED: FUROSEMIDE 100MG VIAL IVP ONE (17:00)
[2022-10-19] MEDS ORDERED: METOLAZONE 2.5 MG TABLET PO SCH (17:00)
[2022-10-19] MEDS ORDERED: ALBUMIN (HUMAN) 5% 250 ML IV ONE (17:19)
[2022-10-19 17:29] LABS: ABG BASE EXCESS 3.2 mmol/L (-2.0-3.0); ABG HCO3 25.3 mmol/L (21.0-28.0); ABG OXYGEN SATURATION 96.4 % (95.0-99.0); ABG PCO2 29 mmHg (32-45)
[2022-10-19 17:41] LABS: HEMATOCRIT 23.2 % (36-48); MEAN CORPUSCULAR HEMOGLOBIN 30.4 pg (27.0-33.0); MEAN CORPUSCULAR HGB CONC 34.1 g/dL (32.0-36.0); MEAN CORPUSCULAR VOLUME 89.2 fL (79-99); NUCLEATED RED BLOOD CELLS 0.4 % (0.0-0.19); RED BLOOD CELL COUNT(AUTO) 2.6 MIL/uL (4.00-5.50); RED CELL DISTRIBUTION WIDTH 15.5 % (11.0-15.5); WHITE BLOOD COUNT (AUTO) 16.2 K/uL (4.8-10.8)
[2022-10-19 17:47] LABS: CREATININE 3.6 mg/dL (0.5-1.5); POTASSIUM 4.2 mmol/L (3.5-5.1)
[2022-10-19 17:49] LABS: INR 1.41 (0.85-1.15); PROTHROMBIN TIME 15.1 SEC (9.6-11.6)
[2022-10-19 17:50] LABS: PARTIAL THROMBOPLASTIN TIME 37.2 SEC (26.3-35.5)
[2022-10-19 18:04] LABS: ALBUMIN 2.2 g/dL (3.5-5.0); TOTAL PROTEIN, SERUM 4.4 g/dL (6.0-8.3)
[2022-10-19 18:45] LABS: ABG BASE EXCESS -1.5 mmol/L (-2.0-3.0); ABG HCO3 22.7 mmol/L (21.0-28.0); ABG OXYGEN SATURATION 96.3 % (95.0-99.0); ABG PCO2 36 mmHg (32-45)
[2022-10-19] MEDS: IPRATROPIUM 0.5 MG/2.5 ML INH IH SCH ×2 (19:23→23:55)
[2022-10-19] MEDS: SODIUM CHLORIDE 3% FOR INHALATION 4 ML/AMP VIAL.NEB IH SCH ×2 (19:23→23:55)
[2022-10-19 20:17] LABS: AMMONIA 46 umol/L (11-32)
[2022-10-19 20:17] LABS: ABG BASE EXCESS 4.6 mmol/L (-2.0-3.0); ABG HCO3 27.6 mmol/L (21.0-28.0); ABG OXYGEN SATURATION 96.2 % (95.0-99.0); ABG PCO2 35 mmHg (32-45)
[2022-10-19 20:19] LABS: CREATINE KINASE, TOTAL 6102 U/L (21-232)
[2022-10-19] MEDS: MEROPENEM 500 MG VIAL IVP SCH (20:50)
[2022-10-19] MEDS ORDERED: ROCURONIUM 10MG/1ML SYR 10 MG/ML ML ONE (21:20)
[2022-10-19] MEDS ORDERED: MIDAZOLAM HCL 1 MG/ML 2ML VIAL ONE (21:32)
[2022-10-19 22:19] LABS: ABG BASE EXCESS 3.9 mmol/L (-2.0-3.0); ABG HCO3 27.4 mmol/L (21.0-28.0); ABG OXYGEN SATURATION 98.3 % (95.0-99.0); ABG PCO2 37 mmHg (32-45)
[2022-10-19] MEDS: ATORVASTATIN 40 MG TABLET PO SCH (22:47)
[2022-10-19 23:29] LABS: ABG BASE EXCESS 2.4 mmol/L (-2.0-3.0); ABG HCO3 26.1 mmol/L (21.0-28.0); ABG OXYGEN SATURATION 97.3 % (95.0-99.0); ABG PCO2 38 mmHg (32-45)
[2022-10-20] VITALS (105 sets, daily range): BP systolic 72–291; BP diastolic 30–165
[2022-10-20 00:35] LABS: ABG BASE EXCESS 1.7 mmol/L (-2.0-3.0); ABG HCO3 25.1 mmol/L (21.0-28.0); ABG OXYGEN SATURATION 97.4 % (95.0-99.0); ABG PCO2 35 mmHg (32-45)
[2022-10-20] MEDS: PHARMACY COMMUNICATION MISC SCH ×2 (01:00→13:00)
[2022-10-20 01:39] LABS: ABG BASE EXCESS -0.6 mmol/L (-2.0-3.0); ABG HCO3 23.2 mmol/L (21.0-28.0); ABG OXYGEN SATURATION 96.6 % (95.0-99.0); ABG PCO2 35 mmHg (32-45)
[2022-10-20] MEDS ORDERED: FUROSEMIDE 100MG VIAL ONE (02:14)
[2022-10-20] MEDS ORDERED: 0.9%NACL 100ML 100 ML ONE (02:15)
[2022-10-20] MEDS: NITROGLYCERIN 1GM OINT 1 INCH/1GM TD SCH ×4 (02:19→19:30)
[2022-10-20 02:34] LABS: ABG BASE EXCESS -2.1 mmol/L (-2.0-3.0); ABG HCO3 21.6 mmol/L (21.0-28.0); ABG OXYGEN SATURATION 96.8 % (95.0-99.0); ABG PCO2 34 mmHg (32-45)
[2022-10-20] MEDS: SODIUM BICARB 50MEQ 50ML VIAL IV PRN ×8 (02:42→23:36)
[2022-10-20] MEDS ORDERED: SODIUM BICARB 8.4% 50ML SYRINGE IVP SCH (03:00)
[2022-10-20] MEDS ORDERED: FUROSEMIDE 40MG VIAL IV ONE ×2 (03:00→07:00)
[2022-10-20] MEDS ORDERED: INSULIN HUMULIN R 100 UNIT/ML 3ML IV ONE ×2 (03:00→07:00)
[2022-10-20] MEDS ORDERED: CACL 1GM SYG IVP SCH (03:00)
[2022-10-20] MEDS ORDERED: KAYEXALATE 15GM/60ML PO ONE ×3 (03:00→07:00)
[2022-10-20] MEDS ORDERED: DEXTROSE 50%-WATER 50 ML DISP.SYRIN IV ONE ×2 (03:00→07:00)
[2022-10-20] MEDS ORDERED: ALBUTEROL 0.083% 2.5 MG/3 ML INH IH ONE ×2 (03:00→07:00)
[2022-10-20 03:28] LABS: ABG BASE EXCESS 0.3 mmol/L (-2.0-3.0); ABG HCO3 24.7 mmol/L (21.0-28.0); ABG OXYGEN SATURATION 91.4 % (95.0-99.0); ABG PCO2 39 mmHg (32-45)
[2022-10-20 03:50] LABS: MEAN CORPUSCULAR HEMOGLOBIN 30.3 pg (27.0-33.0); MEAN CORPUSCULAR VOLUME 86.7 fL (79-99); NUCLEATED RED BLOOD CELLS 1.3 % (0.0-0.19); RED BLOOD CELL COUNT(AUTO) 3.23 MIL/uL (4.00-5.50); RED CELL DISTRIBUTION WIDTH 14.9 % (11.0-15.5); WHITE BLOOD COUNT (AUTO) 14.7 K/uL (4.8-10.8)
[2022-10-20 04:16] LABS: INR 1.88 (0.85-1.15); PROTHROMBIN TIME 19.8 SEC (9.6-11.6)
[2022-10-20 04:17] LABS: PARTIAL THROMBOPLASTIN TIME 47.7 SEC (26.3-35.5)
[2022-10-20 04:18] LABS: ALBUMIN 1.7 g/dL (3.5-5.0); CREATININE 4.3 mg/dL (0.5-1.5); MAGNESIUM 2.7 mg/dL (1.80-2.40); PHOSPHORUS 8.7 mg/dL (2.5-4.9); POTASSIUM 5.5 mmol/L (3.5-5.1); TOTAL PROTEIN, SERUM 3.4 g/dL (6.0-8.3); URIC ACID 11.9 mg/dL (2.6-7.2)
[2022-10-20 04:22] LABS: ABG HCO3 25.6 mmol/L (21.0-28.0); ABG OXYGEN SATURATION 98.5 % (95.0-99.0); ABG PCO2 32 mmHg (32-45)
[2022-10-20 05:25] LABS: ABG BASE EXCESS 0.2 mmol/L (-2.0-3.0); ABG HCO3 23.5 mmol/L (21.0-28.0); ABG OXYGEN SATURATION 96.8 % (95.0-99.0); ABG PCO2 34 mmHg (32-45)
[2022-10-20] MEDS: SODIUM CHLORIDE 3% FOR INHALATION 4 ML/AMP VIAL.NEB IH SCH ×4 (06:14→23:22)
[2022-10-20] MEDS: IPRATROPIUM 0.5 MG/2.5 ML INH IH SCH ×4 (06:14→23:20)
[2022-10-20] MEDS: DEXTROSE 5% IVPB SCH ×3 (06:15→22:50)
[2022-10-20] MEDS: WATER IVPB SCH ×3 (06:15→22:50)
[2022-10-20] MEDS: PHYTONADIONE IVPB SCH ×3 (06:15→22:50)
[2022-10-20 06:18] LABS: ABG BASE EXCESS -1.8 mmol/L (-2.0-3.0); ABG HCO3 22.3 mmol/L (21.0-28.0); ABG OXYGEN SATURATION 96.4 % (95.0-99.0); ABG PCO2 36 mmHg (32-45)
[2022-10-20] MEDS ORDERED: SODIUM BICARB 50MEQ 50ML VIAL IV ONE (07:00)
[2022-10-20 07:19] LABS: ABG BASE EXCESS -0.2 mmol/L (-2.0-3.0); ABG HCO3 22.4 mmol/L (21.0-28.0); ABG OXYGEN SATURATION 97.8 % (95.0-99.0); ABG PCO2 30 mmHg (32-45)
[2022-10-20] MEDS: CACL 1GM SYG IVP SCH ×2 (07:43→09:18)
[2022-10-20] MEDS: FAMOTIDINE 20MG VIAL IV SCH ×2 (07:47→22:43)
[2022-10-20] MEDS: ASPIRIN 81 MG EC TAB PO SCH (07:47)
[2022-10-20] MEDS: FUROSEMIDE 40MG VIAL IV SCH ×2 (07:48→21:00)
[2022-10-20] MEDS: Vitamin B Complex/Vit C/Folic Acid PO SCH (08:13)
[2022-10-20] MEDS: MEROPENEM 500 MG VIAL IVP SCH ×2 (08:17→22:42)
[2022-10-20 08:37] LABS: ABG HCO3 23.1 mmol/L (21.0-28.0); ABG OXYGEN SATURATION 94.6 % (95.0-99.0); ABG PCO2 36 mmHg (32-45)
[2022-10-20] MEDS ORDERED: LEVOFLOXACIN 500 MG/D5W 100 ML 100 ML IV SCH (09:00)
[2022-10-20] MEDS: INSULIN REGULAR, HUMAN 3ML 100 UNIT in 0.9%NACL 100ML 99 ML IV SCH ×2 (09:17)
[2022-10-20 09:30] LABS: ABG BASE EXCESS 1.6 mmol/L (-2.0-3.0); ABG HCO3 25.3 mmol/L (21.0-28.0); ABG OXYGEN SATURATION 94.2 % (95.0-99.0); ABG PCO2 37 mmHg (32-45)
[2022-10-20] MEDS ORDERED: NA ZIRCON CYCLOSIL(LOKELMA 10GM) PO SCH (10:00)
[2022-10-20] MEDS: AMIODARONE 900MG VIAL 540 MG in DEXTROSE 5%-WATER 300 ML IV SCH (10:02)
[2022-10-20] MEDS ORDERED: ALBUMIN (HUMAN) 5% 250 ML IV ONE ×4 (10:26→21:18)
[2022-10-20 10:29] LABS: ABG BASE EXCESS -0.9 mmol/L (-2.0-3.0); ABG HCO3 22.8 mmol/L (21.0-28.0); ABG OXYGEN SATURATION 94.8 % (95.0-99.0); ABG PCO2 35 mmHg (32-45)
[2022-10-20] MEDS: EPINEPHRINE IV PRN (10:49)
[2022-10-20] MEDS: WATER IV PRN (10:49)
[2022-10-20] MEDS: DEXTROSE 5% IV PRN (10:49)
[2022-10-20 11:37] LABS: ABG HCO3 25.1 mmol/L (21.0-28.0); ABG OXYGEN SATURATION 95.2 % (95.0-99.0); ABG PCO2 34 mmHg (32-45)
[2022-10-20] MEDS ORDERED: KAYEXALATE 15GM/60ML ONE (11:48)
[2022-10-20] MEDS ORDERED: INSULIN HUMULIN R 100 UNIT/ML 3ML ONE (11:50)
[2022-10-20] MEDS ORDERED: SODIUM BICARB 50MEQ 50ML VIAL IV STA (11:59)
[2022-10-20] MEDS ORDERED: INSULIN HUMULIN R 100 UNIT/ML 3ML IV STA (11:59)
[2022-10-20] MEDS ORDERED: KAYEXALATE 15GM/60ML PO STA (11:59)
[2022-10-20] MEDS ORDERED: DEXTROSE 50%-WATER 50 ML DISP.SYRIN IV STA (11:59)
[2022-10-20] MEDS ORDERED: CALCIUM GLUC 1GM/10ML VIAL IV STA (12:08)
[2022-10-20] MEDS: FUROSEMIDE 100MG VIAL 100 MG in 0.9%NACL 100ML 100 ML IV SCH (12:46)
[2022-10-20 12:53] LABS: ABG BASE EXCESS 0.7 mmol/L (-2.0-3.0); ABG HCO3 25.3 mmol/L (21.0-28.0); ABG OXYGEN SATURATION 90.6 % (95.0-99.0); ABG PCO2 40 mmHg (32-45)
[2022-10-20] MEDS: CALCIUM GLUC 1 GM /D5W 50ML IV PRN ×12 (12:54→19:58)
[2022-10-20] MEDS: VASOPRESSIN 40 UNITS in 0.9%NACL 50ML 40 ML IV SCH (13:00)
[2022-10-20 14:01] LABS: ABG BASE EXCESS 2.7 mmol/L (-2.0-3.0); ABG HCO3 26.9 mmol/L (21.0-28.0); ABG OXYGEN SATURATION 91.3 % (95.0-99.0); ABG PCO2 40 mmHg (32-45)
[2022-10-20 15:11] LABS: ABG BASE EXCESS 1.4 mmol/L (-2.0-3.0); ABG HCO3 25.4 mmol/L (21.0-28.0); ABG OXYGEN SATURATION 93.4 % (95.0-99.0); ABG PCO2 38 mmHg (32-45)
[2022-10-20 16:08] LABS: ABG BASE EXCESS -0.5 mmol/L (-2.0-3.0); ABG HCO3 23.3 mmol/L (21.0-28.0); ABG OXYGEN SATURATION 95.2 % (95.0-99.0); ABG PCO2 35 mmHg (32-45)
[2022-10-20 16:59] LABS: ABG BASE EXCESS 2.2 mmol/L (-2.0-3.0); ABG OXYGEN SATURATION 94.6 % (95.0-99.0); ABG PCO2 38 mmHg (32-45)
[2022-10-20 18:12] LABS: ABG BASE EXCESS -0.3 mmol/L (-2.0-3.0); ABG PCO2 33 mmHg (32-45)
[2022-10-20] MEDS ORDERED: INSULIN REGULAR, HUMAN 3ML 100 UNIT in 0.9%NACL 100ML 99 ML IV SCH ×2 (19:00)
[2022-10-20 19:16] LABS: ABG BASE EXCESS 0.1 mmol/L (-2.0-3.0); ABG HCO3 23.9 mmol/L (21.0-28.0); ABG OXYGEN SATURATION 96.2 % (95.0-99.0); ABG PCO2 35 mmHg (32-45)
[2022-10-20 19:43] LABS: ABG BASE EXCESS 6.8 mmol/L (-2.0-3.0); ABG HCO3 31.2 mmol/L (21.0-28.0); ABG OXYGEN SATURATION 94.6 % (95.0-99.0); ABG PCO2 45 mmHg (32-45)
[2022-10-20] MEDS: DEXTROSE 50%-WATER 50 ML DISP.SYRIN IV PRN ×2 (20:00→20:01)
[2022-10-20 20:01] LABS: BASOPHILS % (AUTO) 0.5 % (0.0-5.0); EOSINOPHILS % (AUTO) 0.1 % (0.0-8.0); LYMPHOCYTES % (AUTO) 9.7 % (21.0-51.0); MEAN CORPUSCULAR HEMOGLOBIN 30.3 pg (27.0-33.0); MEAN CORPUSCULAR HGB CONC 33.7 g/dL (32.0-36.0); MEAN CORPUSCULAR VOLUME 89.9 fL (79-99); MONOCYTES % (AUTO) 5.2 % (3.0-13.0); NUCLEATED RED BLOOD CELLS 2.3 % (0.0-0.19); PLATELET COUNT (AUTO) 50 K/uL (130-400); RED BLOOD CELL COUNT(AUTO) 2.28 MIL/uL (4.00-5.50); RED CELL DISTRIBUTION WIDTH 16.1 % (11.0-15.5); WHITE BLOOD COUNT (AUTO) 19.6 K/uL (4.8-10.8)
[2022-10-20 20:12] LABS: HEMATOCRIT 20.5 % (36-48)
[2022-10-20 20:19] LABS: CREATININE 4.6 mg/dL (0.5-1.5); MAGNESIUM 2.7 mg/dL (1.80-2.40); PHOSPHORUS 10.6 mg/dL (2.5-4.9)
[2022-10-20 20:29] LABS: POTASSIUM 7.2 mmol/L (3.5-5.1)
[2022-10-20 20:39] LABS: ABG BASE EXCESS 4.7 mmol/L (-2.0-3.0); ABG HCO3 28.8 mmol/L (21.0-28.0); ABG OXYGEN SATURATION 96.6 % (95.0-99.0); ABG PCO2 41 mmHg (32-45)
[2022-10-20] MEDS ORDERED: CALCIUM GLUC 1GM/10ML VIAL ONE ×3 (20:55→23:13)
[2022-10-20 21:02] LABS: INR 3.01 (0.85-1.15); PROTHROMBIN TIME 30.8 SEC (9.6-11.6)
[2022-10-20 21:03] LABS: PARTIAL THROMBOPLASTIN TIME 54.5 SEC (26.3-35.5)
[2022-10-20] MEDS: WATER IV SCH (22:08)
[2022-10-20] MEDS: DEXTROSE 5% IV SCH (22:08)
[2022-10-20] MEDS: PHENYLEPHRINE HCL IV SCH (22:08)
[2022-10-20 22:19] LABS: ABG BASE EXCESS 0.6 mmol/L (-2.0-3.0); ABG OXYGEN SATURATION 92.4 % (95.0-99.0); ABG PCO2 45 mmHg (32-45)
[2022-10-20] MEDS: ATORVASTATIN 40 MG TABLET PO SCH (22:40)
[2022-10-20 22:41] LABS: HEMATOCRIT 34.4 % (36-48)
[2022-10-20] MEDS ORDERED: PHYTONADIONE 10 MG/1 ML AMP ONE (22:47)
[2022-10-20 22:48] LABS: CREATININE 2.6 mg/dL (0.5-1.5); POTASSIUM 4.4 mmol/L (3.5-5.1)
[2022-10-20 23:27] LABS: ABG BASE EXCESS -1.7 mmol/L (-2.0-3.0); ABG HCO3 23.9 mmol/L (21.0-28.0); ABG OXYGEN SATURATION 90.3 % (95.0-99.0); ABG PCO2 44 mmHg (32-45)
[2022-10-21] VITALS (111 sets, daily range): BP systolic 13–158; BP diastolic 11–97
[2022-10-21] MEDS ORDERED: CALCIUM GLUC 1GM/10ML VIAL ONE ×16 (00:02→18:45)
[2022-10-21 00:32] LABS: ABG BASE EXCESS -2.5 mmol/L (-2.0-3.0); ABG HCO3 22.9 mmol/L (21.0-28.0); ABG OXYGEN SATURATION 87.8 % (95.0-99.0); ABG PCO2 42 mmHg (32-45)
[2022-10-21] MEDS: AMIODARONE 900MG VIAL 540 MG in DEXTROSE 5%-WATER 300 ML IV SCH ×2 (00:48→19:40)
[2022-10-21] MEDS: FUROSEMIDE 100MG VIAL 100 MG in 0.9%NACL 100ML 100 ML IV SCH (00:52)
[2022-10-21 02:06] LABS: ABG BASE EXCESS -1.3 mmol/L (-2.0-3.0); ABG HCO3 23.6 mmol/L (21.0-28.0); ABG OXYGEN SATURATION 88.6 % (95.0-99.0); ABG PCO2 40 mmHg (32-45)
[2022-10-21] MEDS: SODIUM BICARB 50MEQ 50ML VIAL IV PRN ×15 (02:08→18:40)
[2022-10-21] MEDS: NITROGLYCERIN 1GM OINT 1 INCH/1GM TD SCH ×4 (02:13→19:30)
[2022-10-21 03:09] LABS: ABG BASE EXCESS 0.2 mmol/L (-2.0-3.0); ABG HCO3 25.5 mmol/L (21.0-28.0); ABG OXYGEN SATURATION 89.1 % (95.0-99.0); ABG PCO2 44 mmHg (32-45)
[2022-10-21] MEDS: CALCIUM GLUC 1 GM /D5W 50ML IV PRN ×18 (03:35→18:46)
[2022-10-21 04:12] LABS: ABG BASE EXCESS -1.5 mmol/L (-2.0-3.0); ABG OXYGEN SATURATION 90.1 % (95.0-99.0); ABG PCO2 38 mmHg (32-45)
[2022-10-21] MEDS: DEXTROSE 50%-WATER 50 ML DISP.SYRIN IV PRN ×6 (04:39→18:51)
[2022-10-21 05:06] LABS: ABG BASE EXCESS -2.5 mmol/L (-2.0-3.0); ABG HCO3 22.4 mmol/L (21.0-28.0); ABG OXYGEN SATURATION 87.6 % (95.0-99.0); ABG PCO2 39 mmHg (32-45)
[2022-10-21 05:20] LABS: BASOPHILS % (AUTO) 0.8 % (0.0-5.0); HEMATOCRIT 28.6 % (36-48); LYMPHOCYTES % (AUTO) 7.2 % (21.0-51.0); MEAN CORPUSCULAR HEMOGLOBIN 29.8 pg (27.0-33.0); MEAN CORPUSCULAR HGB CONC 33.2 g/dL (32.0-36.0); MEAN CORPUSCULAR VOLUME 89.7 fL (79-99); MONOCYTES % (AUTO) 4.6 % (3.0-13.0); NEUTROPHILS % (AUTO) 84.8 % (40.0-77.0); NUCLEATED RED BLOOD CELLS 3.3 % (0.0-0.19); PLATELET COUNT (AUTO) 32 K/uL (130-400); RED BLOOD CELL COUNT(AUTO) 3.19 MIL/uL (4.00-5.50); RED CELL DISTRIBUTION WIDTH 15.9 % (11.0-15.5); WHITE BLOOD COUNT (AUTO) 16.4 K/uL (4.8-10.8)
[2022-10-21 05:46] LABS: INR 2.67 (0.85-1.15); PROTHROMBIN TIME 27.5 SEC (9.6-11.6)
[2022-10-21 05:47] LABS: PARTIAL THROMBOPLASTIN TIME 49.4 SEC (26.3-35.5)
[2022-10-21 05:58] LABS: ALBUMIN 2.3 g/dL (3.5-5.0); CARBON DIOXIDE 24 mmol/L (21-32); CHLORIDE 98 mmol/L (101-111); CREATININE 3.5 mg/dL (0.5-1.5); GLOMERULAR FILTR. RATE CALC 13 mL/min (>60); GLUCOSE,RANDOM 148 mg/dL (70-105); HDL CHOLESTEROL 11 mg/dL (35-85); LDL DIRECT 14 mg/dL (0-99); POTASSIUM 5.4 mmol/L (3.5-5.1); SODIUM SERUM 155 mmol/L (136-145); TOTAL PROTEIN, SERUM 3.7 g/dL (6.0-8.3); TRIGLYCERIDES 111 mg/dL (30-200); UREA NITROGEN, BLOOD 33 mg/dL (7-18)
[2022-10-21 06:31] LABS: ABG HCO3 23.4 mmol/L (21.0-28.0); ABG PCO2 43 mmHg (32-45)
[2022-10-21] MEDS: IPRATROPIUM 0.5 MG/2.5 ML INH IH SCH ×3 (06:35→18:41)
[2022-10-21] MEDS: SODIUM CHLORIDE 3% FOR INHALATION 4 ML/AMP VIAL.NEB IH SCH ×3 (06:35→18:41)
[2022-10-21 06:52] LABS: CHOLESTEROL < 50 mg/dL (<200)
[2022-10-21] MEDS: PHYTONADIONE IVPB SCH ×3 (07:18→19:40)
[2022-10-21] MEDS: WATER IVPB SCH ×3 (07:18→19:40)
[2022-10-21] MEDS: DEXTROSE 5% IVPB SCH ×3 (07:18→19:40)
[2022-10-21] MEDS: WATER IV PRN (07:23)
[2022-10-21] MEDS: DEXTROSE 5% IV PRN (07:23)
[2022-10-21] MEDS: EPINEPHRINE IV PRN (07:23)
[2022-10-21] MEDS: FUROSEMIDE 40MG VIAL IV SCH (07:24)
[2022-10-21] MEDS: NOREPINEPHRINE BITARTRATE 32 MG in DEXTROSE 5%-WATER 250 ML IV SCH (07:24)
[2022-10-21 07:37] LABS: ASPARTATE AMINOTRANSFERASE 10755 U/L (10-37)
[2022-10-21 07:41] LABS: ABG HCO3 22.5 mmol/L (21.0-28.0); ABG OXYGEN SATURATION 90.2 % (95.0-99.0); ABG PCO2 42 mmHg (32-45)
[2022-10-21] MEDS: ASPIRIN 81 MG EC TAB PO SCH (07:48)
[2022-10-21] MEDS: Vitamin B Complex/Vit C/Folic Acid PO SCH (07:48)
[2022-10-21] MEDS: FAMOTIDINE 20MG VIAL IV SCH ×2 (07:48→19:39)
[2022-10-21] MEDS: MEROPENEM 500 MG VIAL IVP SCH ×2 (08:08→19:39)
[2022-10-21] MEDS: PHARMACY COMMUNICATION MISC SCH ×2 (08:15→13:00)
[2022-10-21 08:56] LABS: ABG BASE EXCESS -3.5 mmol/L (-2.0-3.0); ABG HCO3 21.7 mmol/L (21.0-28.0); ABG OXYGEN SATURATION 91.5 % (95.0-99.0); ABG PCO2 40 mmHg (32-45)
[2022-10-21 09:05] LABS: ALANINE AMINOTRANSFERASE 3564 U/L (12-78); CREATINE KINASE, TOTAL 22254 U/L (21-232)
[2022-10-21 09:06] LABS: MYOGLOBIN 227400 ng/mL (10-92)
[2022-10-21] MEDS ORDERED: ALBUMIN (HUMAN) 5% 250 ML IV ONE ×2 (09:06→10:11)
[2022-10-21] MEDS: VASOPRESSIN 40 UNITS in 0.9%NACL 50ML 40 ML IV SCH (09:21)
[2022-10-21 09:53] LABS: ABG BASE EXCESS -2.3 mmol/L (-2.0-3.0); ABG HCO3 23.7 mmol/L (21.0-28.0); ABG OXYGEN SATURATION 89.8 % (95.0-99.0); ABG PCO2 46 mmHg (32-45)
[2022-10-21 10:32] LABS: MEAN CORPUSCULAR HEMOGLOBIN 29.7 pg (27.0-33.0); MEAN CORPUSCULAR HGB CONC 32.9 g/dL (32.0-36.0); MEAN CORPUSCULAR VOLUME 90.2 fL (79-99); NUCLEATED RED BLOOD CELLS 3.3 % (0.0-0.19); RED BLOOD CELL COUNT(AUTO) 2.66 MIL/uL (4.00-5.50); RED CELL DISTRIBUTION WIDTH 16.7 % (11.0-15.5); WHITE BLOOD COUNT (AUTO) 16.2 K/uL (4.8-10.8)
[2022-10-21 11:04] LABS: ABG BASE EXCESS -1.4 mmol/L (-2.0-3.0); ABG HCO3 23.8 mmol/L (21.0-28.0); ABG OXYGEN SATURATION 95.2 % (95.0-99.0); ABG PCO2 42 mmHg (32-45)
[2022-10-21] MEDS ORDERED: SODIUM BICARB 50MEQ 50ML VIAL 50 ML ONE (11:06)
[2022-10-21 11:58] LABS: ABG BASE EXCESS -3.5 mmol/L (-2.0-3.0); ABG HCO3 20.9 mmol/L (21.0-28.0); ABG OXYGEN SATURATION 95.8 % (95.0-99.0); ABG PCO2 36 mmHg (32-45)
[2022-10-21 13:24] LABS: ABG BASE EXCESS -3.1 mmol/L (-2.0-3.0); ABG HCO3 22.3 mmol/L (21.0-28.0); ABG OXYGEN SATURATION 94.6 % (95.0-99.0); ABG PCO2 41 mmHg (32-45)
[2022-10-21 14:59] LABS: ABG BASE EXCESS -4.1 mmol/L (-2.0-3.0); ABG HCO3 21.9 mmol/L (21.0-28.0); ABG OXYGEN SATURATION 90.1 % (95.0-99.0); ABG PCO2 44 mmHg (32-45)
[2022-10-21 15:57] LABS: ABG HCO3 23.2 mmol/L (21.0-28.0); ABG OXYGEN SATURATION 90.3 % (95.0-99.0); ABG PCO2 46 mmHg (32-45)
[2022-10-21 18:26] LABS: ABG BASE EXCESS -5.4 mmol/L (-2.0-3.0); ABG HCO3 20.7 mmol/L (21.0-28.0); ABG OXYGEN SATURATION 93.4 % (95.0-99.0); ABG PCO2 43 mmHg (32-45)
[2022-10-21] MEDS: ATORVASTATIN 40 MG TABLET PO SCH (19:40)
[2022-10-21] MEDS ORDERED: MORPHINE 2 MG SYG ONE (19:44)
[2022-10-21] MEDS ORDERED: ONDANSETRON 4MG INJ IVP PRN (20:00)
[2022-10-21] MEDS ORDERED: HALOPERIDOL INJ 5 MG/ML VIAL IM PRN (20:00)
[2022-10-21] MEDS ORDERED: ACETAMINOPHEN 650 MG SUPPOSITORY RC PRN (20:00)
[2022-10-21] MEDS ORDERED: GLYCOPYRROLATE 1 MG/5 ML SYRINGE IV PRN (20:00)
[2022-10-21] MEDS ORDERED: LORAZEPAM 2 MG/ML 1 ML VIAL IM PRN (20:00)
[2022-10-21] MEDS ORDERED: MORPHINE 2 MG SYG IVP PRN (20:00)
[2022-10-21] MEDS ORDERED: MORPHINE 2 MG SYG IVP ONE (20:00)
[2022-10-21 23:38] LABS: HEPATITIS B SURFACE ANTIGEN Non-Reactive (Nonreactive)
== END 2022-10-21 20:24 | DRG 233 ==
LOC: 2BH 13:35 → 2CV 10-18 07:57 → 2CH 10-21 18:43
PROVIDERS: ADMIT Hospitalist; ATTEND Hospitalist
PROC: 4A023N7 Measurement of Cardiac Sampling and Pressure, Left Heart, Percutaneous Approach (ICD-10-PCS; principal; 2022-10-15)
PROC: B2111ZZ Fluoroscopy of Multiple Coronary Arteries using Low Osmolar Contrast (ICD-10-PCS; 2022-10-15)
PROC: 30233N1 Transfusion of Nonautologous Red Blood Cells into Peripheral Vein, Percutaneous Approach (ICD-10-PCS; 2022-10-18)
PROC: 5A1945Z Respiratory Ventilation, 24-96 Consecutive Hours (ICD-10-PCS; 2022-10-18)
PROC: 0BH17EZ Insertion of Endotracheal Airway into Trachea, Via Natural or Artificial Opening (ICD-10-PCS; 2022-10-18)
PROC: 02100Z9 Bypass Coronary Artery, One Artery from Left Internal Mammary, Open Approach (ICD-10-PCS; 2022-10-18 08:13)
PROC: 0212093 Bypass Coronary Artery, Three Arteries from Coronary Artery with Autologous Venous Tissue, Open Approach (ICD-10-PCS; 2022-10-18 08:13)
PROC: 06BQ4ZZ Excision of Left Saphenous Vein, Percutaneous Endoscopic Approach (ICD-10-PCS; 2022-10-18 08:13)
PROC: 5A02210 Assistance with Cardiac Output using Balloon Pump, Continuous (ICD-10-PCS; 2022-10-18 08:13)
PROC: 04CK3ZZ Extirpation of Matter from Right Femoral Artery, Percutaneous Approach (ICD-10-PCS; 2022-10-19)
PROC: 04QK0ZZ Repair Right Femoral Artery, Open Approach (ICD-10-PCS; 2022-10-19)
PROC: 30233K1 Transfusion of Nonautologous Frozen Plasma into Peripheral Vein, Percutaneous Approach (ICD-10-PCS; 2022-10-19)
PROC: 05HY33Z Insertion of Infusion Device into Upper Vein, Percutaneous Approach (ICD-10-PCS; 2022-10-20)
DX: I21.4 Non-ST elevation (NSTEMI) myocardial infarction (principal); A41.9 Sepsis, unspecified organism; G93.41 Metabolic encephalopathy; N17.0 Acute kidney failure with tubular necrosis; E43 Unspecified severe protein-calorie malnutrition; J96.01 Acute respiratory failure with hypoxia; K72.00 Acute and subacute hepatic failure without coma; R65.21 Severe sepsis with septic shock; I47.20 Ventricular tachycardia, unspecified; E87.0 Hyperosmolality and hypernatremia; Z68.43 Body mass index [BMI] 50.0-59.9, adult; D62 Acute posthemorrhagic anemia; D68.9 Coagulation defect, unspecified; M62.82 Rhabdomyolysis; N13.6 Pyonephrosis; Z66 Do not resuscitate; I46.9 Cardiac arrest, cause unspecified; I25.10 Atherosclerotic heart disease of native coronary artery without angina pectoris; E66.01 Morbid (severe) obesity due to excess calories; D69.6 Thrombocytopenia, unspecified; E11.22 Type 2 diabetes mellitus with diabetic chronic kidney disease; E78.00 Pure hypercholesterolemia, unspecified; E87.5 Hyperkalemia; I12.9 Hypertensive chronic kidney disease with stage 1 through stage 4 chronic kidney disease, or unspecified chronic kidney disease; I25.2 Old myocardial infarction; Z96.652 Presence of left artificial knee joint; I35.0 Nonrheumatic aortic (valve) stenosis; I49.01 Ventricular fibrillation; I72.4 Aneurysm of artery of lower extremity; N18.9 Chronic kidney disease, unspecified; R57.0 Cardiogenic shock; Z79.899 Other long term (current) drug therapy; Z90.710 Acquired absence of both cervix and uterus
CPT/HCPCS: 36415; 36430; 36600; 70450; 71045; 76770; 80048; 80053; 80061; 81001; 82140; 82435; 82436; 82533; 82550; 82570; 82728; 82803; 82947; 82948; 83010; 83036; 83540; 83550; 83605; 83735; 83874; 83880; 83935; 84100; 84132; 84133; 84145; 84295; 84300; 84443; 84550; 85014; 85018; 85025; 85027; 85384; 85610; 85730; 86140; 86701; 86704; 86706; 86850; 86900; 86901; 86923; 86927; 87040; 87071; 87088; 87205; 87340; 87390; 87641; 90935; 93005; 93306; 93312; 93356; 93454; 93567; 93880; 93926; 93931; 94002; 94003; 94640; 94664; 99156; 99157; A4606; A7048; C1752; C1757; C1760; C1769; C1894; G0378; J0171; J0282; J0461; J0610; J0690; J1644; J1650; J1815; J1940; J1956; J2001; J2185; J2250; J2370; J2440; J2704; J2720; J3010; J3430; J3475; J3480; J3490; J7030; J7040; J7050; J7060; J7070; J7120; P9012; P9016; P9017; P9034; P9045; P9047; Q9967